=== PATIENT | male | born 1960 | race Hispanic/Latino ===

== ENCOUNTER 2017-07-23 09:58 | Outpatient (CLI) | payer OTHER | END 2017-07-23 09:59 | disposition home or self-care (01) | LOC: MADEKG 09:58 | PROVIDERS: ATTEND Family Medicine | DX: R42 Dizziness and giddiness (principal); R00.1 Bradycardia, unspecified ==

== ENCOUNTER 2018-07-11 19:19 | Emergency (ER) | payer SELFPAY ==
[~2018-07-11 19:19] MED LIST: Sodium Chloride 0.9% 1,000 ML BAG ONE
[2018-07-11 19:53] LABS: #Lymphocytes 0.4 thou/uL (1.20-3.40); #Monocytes 0.6 thou/uL (0.11-0.59); #Neutrophils 7.5 thou/uL (1.40-6.50); %Basophils 0.3 % (0.0-1.0); %Eosinophils 0.3 % (0.0-10.0); %Lymphocytes 4.8 % (21.0-51.0); %Monocytes 6.5 % (0.0-10.0); Hemoglobin 14.8 g/dL (14.0-18.0); Mean Corpuscular HGB CONC 33.6 g/dL (32.0-36.0); Mean Corpuscular Hemoglobin 30.7 pg (27.0-31.0); Mean Corpuscular Volume 91.5 fL (78.0-98.0); Mean Platelet Volume 7.2 fL (7.4-10.4); Platelet Count 209 thou/uL (130-400); RBC Distribution Width 11.3 % (11.5-14.5); White Blood Cell (WBC) Count 8.5 thou/uL (4.8-10.8)
[2018-07-11 20:08] LABS: Anion Gap 16 mmol/L (10-20); BUN (Urea Nitrogen) 19 mg/dL (8.4-25.7); Calc. Creatinine Clearance 0 mL/min (70-130); Calcium 9.4 mg/dL (7.8-10.44); Carbon Dioxide 22 mmol/L (22-29); Chloride 104 mmol/L (98-107); Estimated GFR-MDRD Greater than 90; Glucose 117 mg/dL (70-105); Sodium 138 mmol/L (136-145)
[2018-07-11 20:12] LABS: CKMB 0.6 ng/mL (0-6.6)
--- NOTE | 2018-07-11 20:50 | RAD ---
.CHEST ONE VIEW: HISTORY: Syncope. COMPARISON: None. FINDINGS: A portable upright chest shows a normal cardiac silhouette. The pulmonary vessels and hilum are norm al. No consolidation or mass. No pneumothorax or osseous abnormalities. IMPRESSION: No acute cardiopulmonary process. POS: PPP
[2018-07-11] MEDS ORDERED: Ondansetron HCl/PF 4 MG/2 ML Vial ONE (20:57)
[2018-07-11] MEDS ORDERED: Meclizine HCl 25 MG TAB ONE (20:57)
== END 2018-07-11 21:25 | disposition home or self-care (01) ==
LOC: MADERS 19:19
DX: H81.13 Benign paroxysmal vertigo, bilateral (principal); R55 Syncope and collapse
CPT/HCPCS: 71045; 80048; 82553; 84484; 85025; 85379; 93005; 94760; 96361; 96374; J2405; J7050

== ENCOUNTER 2024-06-21 14:34 | Emergency (ER) | payer SELFPAY | END 2024-06-21 14:45 | disposition left against medical advice (07) | LOC: MADERS 14:34 | DX: Z53.21 Procedure and treatment not carried out due to patient leaving prior to being seen by health care provider (principal) ==